=== PATIENT | male | born 2000 ===

== ENCOUNTER 2020-04-03 15:12 | Emergency (ER) | payer OTHER ==
[~2020-04-03] VITALS: Ht 157.5 cm; Wt 59.0 kg
== END 2020-04-03 16:54 | disposition home or self-care (01) ==
LOC: ER 15:12
DX: N43.2 Other hydrocele (principal); N50.812 Left testicular pain

== ENCOUNTER → 2020-04-03 | Emergency (ER) | payer OTHER ==
[~2020-04-03] VITALS: Ht 157.5 cm; Wt 59.0 kg
== END | disposition left against medical advice (07) ==
LOC: ER 11:58
DX: N50.812 Left testicular pain (principal)